=== PATIENT | male | born 1970 | race Caucasian/White ===

== ENCOUNTER 2017-03-04 08:23 | Day surgery (SDC) | payer OTHER ==
[2017-02-25 15:38] VITALS: BMI 31.4
[~2017-03-04 08:23] MED LIST: DEXAMETHASONE SOD PHOSPHATE 10 MG/ML 1 ML VIAL IV ONE; HEPARIN SODIUM,PORCINE 5,000 UNIT/ML 1 ML VIAL SQ ONE; HYDROmorphone 1 MG/ML 1 ML SYRINGE IVP PRN; LACTATED RINGERS 1,000 ML IV SCH; ONDANSETRON 4 MG/2 ML VIAL IVP ONE; ceFAZolin 2 GM in SODIUM CHLORIDE 0.9% 100 ML IVPB ONE
[2017-03-04] MEDS ORDERED: LIDOCAINE 1% 20 ML VIAL (10MG/ML) FOR IV START INTRADERMA ONE (08:52)
[2017-03-04] MEDS ORDERED: SCOPOLAMINE 1.5MG/72HR PATCH TRANSDERM ONE (08:53)
[2017-03-04] MEDS ORDERED: MIDAZOLAM 2 MG/2 ML VIAL ONE (09:46)
[2017-03-04] MEDS ORDERED: BUPIVACAINE (PF) 0.5% 30 ML VIAL SQ ONE (09:46)
[2017-03-04] MEDS ORDERED: LIDOCAINE 1% INJ 10MG/ML (20 ML MDV) ONE (09:46)
[2017-03-04] MEDS ORDERED: PROPOFOL 10 MG/ML 20 ML VIAL IV ONE (09:46)
[2017-03-04] MEDS ORDERED: KETOROLAC 30 MG/ML 1 ML VIAL ONE (09:46)
[2017-03-04] MEDS ORDERED: fentaNYL (PF) 50 MCG/ML 2 ML AMP ONE (09:46)
[2017-03-04 10:56] VITALS: TEMP 97.9
--- NOTE | 2017-03-04 10:57 | P.OP ---
Date of Procedure: 03/04/17 Preoperative Diagnosis: Recurrent right inguinal hernia and pigmented nevus left thigh 1 cm in diameter Postoperative Diagnosis: Recurrent right direct inguinal hernia and pigmented nevus of left thigh Procedure(s) Performed: Repair of recurrent right direct inguinal hernia with Marlex mesh and excision of the segment nevus left thigh incision length 2.5 cm. Implants: Anesthesia: LALO Surgeon: Alonzo Krishnamurthy Estimated Blood Loss (ml): 5 Pathology: other (Pigmented nevus left thigh) Condition: stable Disposition: PACU Indications for Procedure: Patient has a recurrent the bulge in the right the groin for the last several months symptomatic with discomfort. Had had a right inguinal hernia repair as an infant. Also an enlarging pigmented the irregular lesion in the left thigh. Repair of the hernia with the excision of the nevus on the left thigh was recommended and informed consent was obtained procedure is having being explained to him including potential complication particular bleeding infection recurrence pain and hematoma seroma etc. he understood and agree to proceed. Operative Findings: Recurrent right inguinal hernia direct. Pigmented nevus left thigh. Description of Procedure: With the patient supine the lower abdominal wall groin and genitalia and upper thighs were prepped with Betadine and draped. Local anesthetic Marcaine 0.5% plain was infiltrated into the skin and subcutaneous tissues along the line of the incision in the right groin above and parallel to the right inguinal ligament and deepened through the subcutaneous tissue. The external oblique aponeurosis was then infiltrated with the Marcaine and incised in the direction of its fibers. Upper and lower flaps were created there was a small amount of adhesions with was the dissected to make the procedure more difficult but once accomplished the cord structures were identified and slung. There was noted a director inguinal hernia. The cord structures were explored and no evidence of any indirect component. The floor was repaired by approximation of the Marlex mesh 2" x 4" to the pubic tubercle and shelving edge of the inguinal ligament with running 2-0 Prolene inferiorly and to the conjoined tendon and internal oblique aponeurosis superiorly. The mesh was split laterally and the tails were reapproximated lateral to the cord structures with the upper flap being approximated to the lower flap as well as to the shelving edge of the inguinal ligament with the Prolene with a systolic fit around the cord structures at the internal ring. Ilioinguinal inguinal nerve was left intact. The wound was irrigated. Hemostasis was good and the field was dry. The external oblique aponeurosis were then closed over the cord structures with running 3-0 Prolene Phil's fascia with interrupted 4 Vicryl and the skin with 4-0 Monocryl subcuticular suture. Attention was then turned to the nevus on the left the upper thigh medially. This was excised with an oval-shaped the elliptical incision with good margins and good hemostasis. Closure was achieved with the running 4-0 Monocryl subcuticular suture. Dermabond was then used on both incisions and dressings were applied. All counts were correct patient was transferred to the recovery room in good and stable condition.
[2017-03-04 11:02] VITALS: RESP 18
[2017-03-04 12:27] VITALS: BP 115/78; PULSE 65
[2017-03-04] MEDS ORDERED: HYDROcodone/APAP 7.5-325MG 1 EACH TAB PO ONE (12:31)
== END 2017-03-04 12:55 | disposition home or self-care (01) ==
LOC: OR 08:23
PROVIDERS: ATTEND Surgery
DX: K40.91 Unilateral inguinal hernia, without obstruction or gangrene, recurrent (principal); L82.1 Other seborrheic keratosis; F17.200 Nicotine dependence, unspecified, uncomplicated; Z79.1 Long term (current) use of non-steroidal anti-inflammatories (NSAID)
CPT/HCPCS: 88305; 49520; 11403; C1781; J2250; J1644; J1100; J0690; J2405; J2001; J3010; J1885; J2704

== ENCOUNTER → 2017-10-16 | Outpatient (CLI) | payer OTHER ==
--- NOTE | 2017-10-16 09:48 | CT ---
EXAMINATION TYPE: CT abdomen pelvis w con DATE OF EXAM: 10/16/2017 COMPARISON: NONE HISTORY: Groin strain CT DLP: 1121.3 mGycm CONTRAST: CT scan of the abdomen and pelvis is performed with Oral Contrast and with IV Contrast, patient injec rosa with 100 mL of Omnipaque 300. FINDINGS: LUNG BASES-: No visible nodule. No infiltrate. LIVER/GB: No calcified gallstones. 7 mm hepatic cyst lateral segment left hepatic lobe. Biliary lencho e is of normal caliber. PANCREAS: No inflammation. No distinct mass. SPLEEN: No splenic enlargement. No lesion seen. ADRENALS: No nodule. No thickening. KIDNEYS/BLADDER: No hydronephrosis. No nephrolithiasis. No disctinct renal mass. Urinary bladder g rossly unremarkable. BOWEL: Normal appendix. Normal bowel caliber. No inflammation. GENITAL ORGANS: No gross abnormality. LYMPH NODES: No greater than 1cm abdominal or pelvic lymph nodes are appreciated. AORTA: No significant abnormality. OSSEOUS STRUCTURES: No significant abnormality is seen. OTHER: Postoperative changes right inguinal hernia repair. Mild stranding noted could be related to s train. I do not see evidence for recurrent hernia at this time. IMPRESSION: 1. Postoperative changes right inguinal hernia repair. Mild stranding noted could be related to strai n. I do not see evidence for recurrent hernia at this time.
== END | disposition home or self-care (01) ==
LOC: RADCTMAIN 08:47
PROVIDERS: ATTEND Surgery
DX: S39.013A Strain of muscle, fascia and tendon of pelvis, initial encounter (principal); Z98.890 Other specified postprocedural states
CPT/HCPCS: 74177; Q9967

== ENCOUNTER → 2019-11-05 | Outpatient (CLI) | payer OTHER ==
--- NOTE | 2019-11-06 00:33 | MR ---
EXAMINATION TYPE: MR knee LT wo con DATE OF EXAM: 11/05/2019 COMPARISON: None HISTORY: Left knee pain after injury Multiplanar multiecho imaging of the left knee was performed with no contrast. There is a moderate knee joint effusion. There is 6 cm popliteal cyst. The anterior and posterior cru ciate ligaments are intact. Lateral meniscus is intact. There is horizontal defect through the project engineering director ior horn of the medial meniscus on the inferior surface there is a cleft in the meniscus best seen on the coronal images proton density image 24. It is not clear if this is a tear or related to anomalou s development of the meniscus. The collateral ligaments are intact. There is no evidence for fracture . Joint spaces are fairly normal. There is subcutaneous edema around the anterior knee. Patella is in tact. IMPRESSION: Large popliteal cyst. Moderate knee joint effusion. Subcutaneous edema. There is horizontal cleft of the posterior horn of the medial meniscus. This could be a tear or devel opmental anomaly. No evidence of ligamentous tear.
== END | disposition home or self-care (01) ==
LOC: RADMRIMAIN 17:10
PROVIDERS: ATTEND Orthopaedic Surgery
DX: M71.22 Synovial cyst of popliteal space [Baker], left knee (principal); M25.462 Effusion, left knee; F17.200 Nicotine dependence, unspecified, uncomplicated; R93.6 Abnormal findings on diagnostic imaging of limbs

== ENCOUNTER → 2020-03-28 | Outpatient (CLI) | payer OTHER ==
--- NOTE | 2020-03-28 13:48 | US ---
EXAMINATION TYPE: US venous doppler duplex LE LT DATE OF EXAM: 03/28/2020 1:25 PM COMPARISON: NONE CLINICAL HISTORY: Phlebitis and thrombophlebitis L LEG I80.9. calf pain, no redness. No swelling. No hx DVT SIDE PERFORMED: left TECHNIQUE: The lower extremity deep venous system is examined utilizing real time linear array sonog eduardo with graded compression, doppler sonography and color-flow sonography. VESSELS IMAGED: External Iliac Vein (EIV) Common Femoral Vein Deep Femoral Vein Greater Saphenous Vein * Femoral Vein Popliteal Vein Small Saphenous Vein * Proximal Calf Veins (* superficial vessels) Left Leg: Negative for DVT. Complex fluid collection visualized posterior knee- 5.0 x 3.3 x 2.1 cm Grayscale, color doppler, spectral doppler imaging performed of the deep veins of the left lower extr emity. There is normal flow, compressibility, vascular waveforms. IMPRESSION: No ultrasound evidence for acute DVT in the left lower extremity. Moderate-sized poplite al cyst noted towards the end of study.
== END | disposition home or self-care (01) ==
LOC: RADUSWWP 12:51
PROVIDERS: ATTEND Orthopaedic Surgery
DX: M71.22 Synovial cyst of popliteal space [Baker], left knee (principal); F17.200 Nicotine dependence, unspecified, uncomplicated; S86.112D Strain of other muscle(s) and tendon(s) of posterior muscle group at lower leg level, left leg, subsequent encounter; Z48.89 Encounter for other specified surgical aftercare; I80.9 Phlebitis and thrombophlebitis of unspecified site